=== PATIENT | female | born 1945 | race Caucasian/White ===

== ENCOUNTER → 2020-09-08 07:25 | Outpatient (CLI) | payer MEDICARE, SELFPAY ==
--- NOTE | 2020-09-08 | IMM_PTH ---
PATIENT: CHRISSY AZUL LOC: [facility] U#:[id number] AGE/SX: 80/F ROOM: RE09/08/[address]: Dr. Bertha Lawton MD : 1945 BED: DIS: SPEC #: [id number] RECD: 09/09/20 12:44 STATUS: CALVIN REQ #: [id number] AYAKA: 09/08/20 00:[address]: Bertha Lawton DEPT: IMMUNOHISTOCHEMISTRY RECD BY: Jessie Gomes ENTERED: 09/09/20 12:46 SP TYPE: IMMUNO OTHR DR: Dr. Kirill Rodriguez DO Tissues: Left breast, NOS Procedures: CALPONIN-1 (add) CK5-6 (add) SANDOVAL-2 (add) E-CAD (add) HER2 OMER (add) P53 (add) TX (add) P40 (add) ER (initial) PHYSICIAN & INSTITUTION [place] [id number] SPECIMEN INFORMATION: Tissue Source: Left breast tissue Clinical Info: Microcalcifications central to nipple anterior depth Specimen Number: [id number] #2 CPT code: 69029, 19545 x7, 10124 x3 METHODOLOGY: Deparaffinized sections of prefer/formalin-fixed tissue or PAP/DQ stained slides are incubated with monoclonal/polyclonal antibodies/oligonucleotide probes. Localization is made via biotin free immunoperoxidase method. Appropriate controls are performed and reacted as expected. Results on target cell population are indicated in the following table: RESULTS: ANTIBODY / CLONE RESULT Block 2 P53 (DO-7) negative Ki-67 (30-9) positive, 40% CK8 (82zyoxF09) positive CK5-6 (D5 & 1684) negative Calponin-1 (VM019Z) negative P40 (BC28) negative E-Cad (ECH-6) positive SANDOVAL-2 (SP21) positive MORPHOMETRIC ANALYSIS ER (clone 6F11) >95% TX (clone 16/1E2) >95% Her-2Neu (clone CB11) 0-1+ The prognostic test for HER2 is performed on formalin-fixed paraffin embedded tissue. A 3+ (positive) staining pattern is defined as intense, homogeneous, complete, circumferential membranous staining in >10% of contiguous tumor cells. A similar weak (2+) staining pattern is interpreted as equivocal. SAMARIA follow-up testing is recommended for all equivocal cases. Positivity/negativity for ER/TX is reported if > or < 1% of the tumor cells are immuno- reactive, respectively. The ASCO/CAP criteria is used for scoring. Reference: Journal of Clinical Oncology, 2013; 31:9809-7083 & 2010; 16:1352-0043. Duration of fixation: 11.5 Hrs; Sample Adequate: Yes. These assays have not been validated on decalcified tissues. Results should be interpreted with caution given the likelihood of false negativity on decalcified specimens. These tests were developed and their performance characteristics determined by [facility]. They may not have been cleared or approved by the U.S. Food and Drug Administration. The FDA has determined that such clearance or approval is not necessary. The above immunohistochemical/dualISH markers are ordered and reviewed by the Pathologist. INTERPRETATION: Left breast tissue, stereotactic core biopsy: Invasive ductal carcinoma, nuclear grade 2. Positive for estrogen receptors (favorable prognostic indicator). Positive for progesterone receptors (favorable prognostic indicator). Negative for overexpression of [id number]. AM:jenn 09/10/2020 Case has been reviewed in consultation with Dr. Trevizo who concurs with the above diagnosis. IDC:SJ
--- NOTE | 2020-09-08 08:00 | BRBX_PTH ---
PATIENT: CHRISSY AZUL LOC: [facility] U#:[id number] AGE/SX: 80/F ROOM: RE09/08/[address]: Dr. Bertha Lawton MD : 1945 BED: DIS: SPEC #: [id number] RECD: 09/08/20 08:28 STATUS: CALVIN REQ #: [id number] AYAKA: 09/08/20 08:[address]: Bertha Lawton DEPT: SURGICAL PATHOLOGY RECD BY: Laila Todd ENTERED: 09/08/20 09:18 SP TYPE: BREAST BX OTHR DR: Dr. Kirill Rodriguez DO Tissues: Breast, NOS Procedures: Surgery Specimen Level IV HEADER OPERATION: Left breast stereotactic needle core biopsy PRE-OP DIAGNOSIS: Microcalcifications central to nipple anterior depth TISSUE SUBMITTED: Left breast tissue ISCHEMIC TIME: 2 minutes FIXATION TIME: 11.5 hours MICROSCOPIC DIAGNOSIS Left breast, stereotactic core biopsy: Invasive ductal carcinoma with the following characteristics: Nuclear Grade - 1-2/3 Maximal length - 6.5millimeters Other findings - Ductal carcinoma insitu and microcalcifications. See comment. AM:jenn 09/09/2020 COMMENT Immunohistochemistry ([id number]) supports the above diagnosis. Case has been reviewed in consultation with Dr. Trevizo who concurs with the above diagnosis. IDC:SJ MICROSCOPIC DESCRIPTION Slides are reviewed. GROSS DESCRIPTION Received is one container labeled with the patient's name and not further designated. The specimen consists of multiple irregular and elongated fragments of montelongo-yellow soft tissue that in aggregate measure 4.5 x 3 x 0.2 cm. The specimen is totally submitted in two cassettes. / AM:jenn 09/08/20 TC:0 CPT: 54921
--- NOTE | 2020-09-08 08:16 | OP.PCM_ITS ---
Report of Operation Date of Procedure: 09/08/20 Pre-Operative Diagnosis: abnormal left breast mammograms Post-Operative Diagnosis: same Surgery/Procedure Performed:: left breast stereotactic biopsy Description of Surgical Findings:: induration of breast tissue with skin tippling with nipple retraction, centrally located, calcifications seen on mammogram Type of Anesthesia:: Local - 2% xylocaine Specimen's removed: left breast tissue Estimated Blood Loss (mL): minimal Fluids Replaced: none Description of Procedure: After informed consent was given, the patient was brought into the Breast Biopsy suite. Appropriate time out protocol was followed. The patient was placed in the prone position on the stereotactic biopsy table. The patient?s left breast was then placed in the opening at the head of the biopsy table. A range mounter compression mammogram was then obtained in the CC view. The suspicious radiological lesion was thus identified. Stereo pictures of the lesion were then taken for XYZ coordinates. The Mammotome biopsy stylus was then positioned where it would be entering into the patient?s breast. The skin at this site was then cleansed with a surgical skin preparation. The skin and subcutaneous tissues at this site were then infiltrated with 1% xylocaine. A small skin incision was made with an 11 blade scalpel. The biopsy stylus was then positioned into the patient?s breast at the proper coordinates of depth. Using the Mammotome vacuum-assist device, several core samples of breast tissue were obtained. A specimen mammogram was the obtained. It revealed that the abnormal calcifications were within the specimen. I reviewed this personally and concluded that the tissue sampling was adequate. A hemostatic marker clip was then placed into the biopsy cavity and a range mounter film revealed that it was properly deployed. The patient was then placed in the supine position and pressure was applied to the breast until no active bleeding was noted. Steristrips were applied to reapproximate the skin. A unilateral mammogram in the CC and MLO view were then taken which revealed that the marker clip was in the same area as the previous suspicious lesion. The patient tolerated the procedure well and was discharged from the Breast Biopsy suite in good condition. - Complications none noted
--- NOTE | 2020-09-08 08:23 | NURSING ---
Pressure held for 5 minutes, no bleeding or hard area felt, skin prep, x3 steri strips applied with a tegaderm dressing, reviewed home care and when to seek medical care, pt. voiced understanding of care.
== END ==
PROVIDERS: PCP Student in an Organized Health Care Education/Training Program; Referring Provider Surgery; Visit Provider Surgery
DX: D05.12 Intraductal carcinoma in situ of left breast (principal); R92.8 Other abnormal and inconclusive findings on diagnostic imaging of breast; R92.1 Mammographic calcification found on diagnostic imaging of breast
CPT/HCPCS: 19081; 88305; 88341; 88342; J7050; A4648

== ENCOUNTER 2023-02-15 12:00 | Outpatient (RCR) | payer MEDICARE, SELFPAY ==
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
--- NOTE | 2023-02-15 12:28 | HP.PTDCSUM ---
It has been my pleasure to treat CHRISSY AZUL referred by Dr. Maurilio Araya DO, with the diagnosis of OA L KNEE for a total of 7 visit(s). Discharge Date: Please see the following information for a summary of their discharge status. Subjective: PATIENT REPORTS SHE CAN BEND HER KNEE AND WALK WITH LESS DISCOMFORT NOW. SHE STATES SHE FEELS SHE HAS THE TOOLS SHE NEEDS TO WORK WITH HER KNEE NOW. L knee Pain Intensity (Out of 10): 1 % Improvement: 20 Objective/Function: PATIENT WAS SEEN TODAY FOR RE-ASSESSMENT OF PROGRESS TOWARD THE SET PT GOALS AND THE NEED FOR FURTHER PHYSICAL THERAPY VS READINESS FOR DISCHARGE. UPON EXAM TODAY: PATIENT HAS RESPONDED WELL TO PT AND IS INDEP WITH A HEP. SHE IS APPROPRIATE FOR AND AGREEABLE TO DISCHARGE. ROM deficit: R LE WFL. L KNEE ROM IN SUPINE WITH A HEEL SLIDE = -15 DEG EXT TO 110 DEG FLEXION WITH ERP BOTH DIRECTIONS. Motor deficit: R LE WFL. L LE WFL EXCEPT L KNEE 4/5 IN AVAILABLE ROM. STEPS: PATIENT ABLE TO ASCEND AND DESCEND STEPS RECIPRICALLY WITHOUT HR WITHOUT ANY GROSS DEVIATION EVEN WHEN STEPPING DOWN WITH R LE. Goal 1:: DECREASE C/O L KNEE PAIN Goal Progress: Goal Met Goal 2:: INCREASE FUNCTIONAL ROM OF L KNEE TO EASE ADL'S. Goal Progress: Goal Met Goal 3:: IMPROVE L KNEE FUNCTIONAL STRENGTH TO EASE ADL'S Goal Progress: Goal Met Goal 4:: PATIENT WILL BE INDEP WITH A HEP FOR CONTINUED IMPROVEMETN ONCE FORMAL PHYSICAL THERPAY CONCLUDES. Goal Progress: Goal Met Plan: D/C TO INDEP EX. PATIENT AGREEABLE. If there are questions or concerns regarding this patient's physical therapy, please feel free to call me at [phone]. Thank you for the referral of this patient. Sincerely, Leticia Robles, PT, Cert MDT Balance/Gait/Functional tests - Balance/Special Test Scores Lower Extremity Functional Score: 66
== END 2023-02-15 12:32 | disposition home or self-care (01) ==
LOC: PT 12:00
PROVIDERS: PCP Student in an Organized Health Care Education/Training Program; Referring Provider Orthopaedic Surgery; Visit Provider Orthopaedic Surgery
DX: M17.12 Unilateral primary osteoarthritis, left knee (principal)
CPT/HCPCS: 97110; 97162; 97164